=== PATIENT | female | born 1950 ===

== ENCOUNTER 2021-06-09 13:40 | Emergency (ER) | payer MEDICARE ==
[2021-06-09] MEDS ORDERED: Iopamidol-370 76% 500 ML 1 ML ONE (13:50)
[2021-06-09 15:06] LABS: #Basophils 0.1 thou/uL (0.0-0.2); #Monocytes 0.4 thou/uL (0.11-0.59); %Basophils 1.1 % (0.0-1.0); %Eosinophils 0.4 % (0.0-10.0); %Lymphocytes 21.7 % (21.0-51.0); %Monocytes 9.6 % (0.0-10.0); %Neutrophils 67.2 % (42.0-75.0); Hemoglobin 13.6 g/dL (12.0-16.0); Mean Corpuscular HGB CONC 34.5 g/dL (32.0-36.0); Mean Corpuscular Hemoglobin 32.2 pg (27.0-31.0); Mean Corpuscular Volume 93.5 fL (78.0-98.0); Mean Platelet Volume 7.8 fL (7.4-10.4); Platelet Count 225 thou/uL (130-400); Red Blood Cell (RBC) Count 4.22 mill/uL (4.20-5.40); White Blood Cell (WBC) Count 4.4 thou/uL (4.8-10.8)
[2021-06-09] MEDS ORDERED: Dexamethasone 10 MG/ML VIAL ONE (15:11)
[2021-06-09] MEDS ORDERED: Ketorolac Tromethamine 30 MG/ML VIAL ONE (15:11)
[2021-06-09 15:34] LABS: ALT (SGPT) 113 U/L (8-55); AST (SGOT) 73 U/L (5-34); Alkaline Phosphatase 47 U/L (40-110); Anion Gap 14 mmol/L (10-20); BUN (Urea Nitrogen) 10 mg/dL (9.8-20.1); Bilirubin, Total 0.5 mg/dL (0.2-1.2); CK (CPK) 159 U/L (29-168); Calc. Creatinine Clearance 0 mL/min (70-130); Calcium 9.2 mg/dL (7.8-10.44); Carbon Dioxide 28 mmol/L (23-31); Chloride 100 mmol/L (98-107); Globulin 3.5 g/dL (2.4-3.5); Glucose 117 mg/dL (80-115); Lipase 38 U/L (8-78); Potassium 4.1 mmol/L (3.5-5.1); Protein, Total 7.5 g/dL (5.8-8.1); Sodium 138 mmol/L (136-145)
== END 2021-06-09 17:16 | disposition home or self-care (01) ==
LOC: ERS 13:40
DX: U07.1 COVID-19 (principal); J12.82 Pneumonia due to coronavirus disease 2019
CPT/HCPCS: 71045; 71275; 80053; 82550; 83690; 84484; 85025; 85379; 93005; 96374; 96375; J1100; J1885; Q9967

== ENCOUNTER 2022-09-03 15:58 | Emergency (ER) | payer MEDICARE ==
[~2022-09-03 15:58] MED LIST: Iopamidol-370 76% 500 ML 1 ML ONE
[2022-09-03 16:49] LABS: #Eosinphils 0.1 thou/uL (0.0-0.7); #Lymphocytes 1.4 thou/uL (1.20-3.40); #Monocytes 0.5 thou/uL (0.11-0.59); #Neutrophils 5.7 thou/uL (1.40-6.50); %Basophils 0.6 % (0.0-1.0); %Eosinophils 1.4 % (0.0-10.0); %Monocytes 5.9 % (0.0-10.0); %Neutrophils 74.1 % (42.0-75.0); Hemoglobin 14.6 g/dL (12.0-16.0); Mean Corpuscular HGB CONC 33.4 g/dL (32.0-36.0); Mean Corpuscular Hemoglobin 31.8 pg (27.0-31.0); Mean Corpuscular Volume 95.1 fl (78.0-98.0); Mean Platelet Volume 8.4 fL (7.4-10.4); Platelet Count 276 thou/uL (130-400); RBC Distribution Width 11.6 % (11.5-14.5); Red Blood Cell (RBC) Count 4.59 mill/uL (4.20-5.40); White Blood Cell (WBC) Count 7.7 thou/uL (4.8-10.8)
[2022-09-03 17:05] LABS: ALT (SGPT) 25 U/L (8-55); AST (SGOT) 14 U/L (5-34); Albumin 4.8 g/dL (3.4-4.8); Alkaline Phosphatase 57 U/L (40-110); Anion Gap 14 mmol/L (10-20); BUN (Urea Nitrogen) 16 mg/dL (9.8-20.1); Bilirubin, Total 0.3 mg/dL (0.2-1.2); Calc. Creatinine Clearance 0 mL/min (70-130); Calcium 9.9 mg/dL (7.8-10.44); Carbon Dioxide 27 mmol/L (23-31); Chloride 105 mmol/L (98-107); Estimated GFR 59; Globulin 3.1 g/dL (2.4-3.5); Glucose 131 mg/dL (83-110); Lipase 37 U/L (8-78); Protein, Total 7.9 g/dL (5.8-8.1); Sodium 142 mmol/L (136-145)
== END 2022-09-03 23:07 | disposition home or self-care (01) ==
LOC: ERS 15:58
DX: R00.2 Palpitations (principal)
CPT/HCPCS: 36415; 71045; 71275; 80053; 83690; 84484; 85025; 85379; 93005; Q9967

== ENCOUNTER 2024-01-13 15:29 | Outpatient (CLI) | payer MEDICARE | END 2024-01-13 15:30 | disposition home or self-care (01) | LOC: SCSRAD 15:29 | PROVIDERS: ATTEND Family Medicine | DX: M25.561 Pain in right knee (principal); M17.11 Unilateral primary osteoarthritis, right knee; M25.541 Pain in joints of right hand; M25.542 Pain in joints of left hand; M25.572 Pain in left ankle and joints of left foot | CPT/HCPCS: 36415; 80053; 83520; 85025; 86140; 86200 ==